=== PATIENT | female | born 1995 | race Caucasian/White ===

== ENCOUNTER 2016-12-19 07:51 | Emergency (ER) | payer OTHER ==
[~2016-12-19] VITALS: Ht 165.1 cm; Wt 59.8 kg
[~2016-12-19 07:51] MED LIST: BCPILLS PO
[2016-12-19 08:12] VITALS: TEMP 36.9; Ht 165.1 cm; Wt 59.8 kg
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
--- NOTE | 2016-12-19 09:17 | DIAGNOSTIC IMAGING REPORT ---
LEFT KNEE 3 VIEWS HISTORY: Fall with left knee pain. COMPARISON: None. FINDINGS: There is no fracture or dislocation. Soft tissues are unremarkable. No radiopaque foreign bodies. No knee effusion. IMPRESSION: No fractures. Electronically signed by: Avtar Soler M.D. 12/19/2016 9:16 AM Dictated Date/Time: 12/19/2016 9:11 AM
[2016-12-19 09:55] VITALS: BP 125/86; PULSE 71; O2SAT 96
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
== END 2016-12-19 09:56 | disposition home or self-care (01) ==
LOC: C.EDB 07:53
DX: S83.92XA Sprain of unspecified site of left knee, initial encounter (principal); W17.89XA Other fall from one level to another, initial encounter; F17.210 Nicotine dependence, cigarettes, uncomplicated